=== PATIENT | male | born 1975 | race Caucasian/White ===

== ENCOUNTER → 2020-10-17 | Outpatient (CLI) | payer OTHER ==
[2016-05-05 12:00] VITALS: BP 109/66
[~2020-10-17] MED LIST: CIPR500T94 PO; NAPR-683 PO; ONDA4TAB10 SL; OXYC1TAB15 PO; OXYC1TAB19 PO; OXYC5TAB4 PO; TAMS0.4C97 PO
== END ==
LOC: LAB 10:53
PROVIDERS: ATTEND Orthopaedic Surgery
DX: Z01.812 Encounter for preprocedural laboratory examination (principal); Z20.828 Contact with and (suspected) exposure to other viral communicable diseases
CPT/HCPCS: U0003

== ENCOUNTER 2020-10-20 10:12 | Day surgery (SDC) | payer OTHER ==
[~2020-10-20 10:12] MED LIST changes: +IV RINGERS,LACTATED 1000ML 1,000 ML IV SCH; -OXYC1TAB19 PO; +PROCHLORPERAZINE 10 MG/2 ML VIAL. IVP PRN; +fentaNYL PF VIAL 100 MCG/2 ML VIAL IVP PRN
[2020-10-20] MEDS ORDERED: MIDAZOLAM HCL/PF 2 MG/2 ML VIAL. ONE (10:49)
[2020-10-20] MEDS ORDERED: DEXAMETHASONE SOD PHOS 4 MG/ML VIAL ONE (10:49)
[2020-10-20] MEDS ORDERED: fentaNYL PF VIAL 100 MCG/2 ML VIAL ONE ×2 (10:50→11:30)
[2020-10-20] MEDS ORDERED: ROPIVacaine 0.5% PF 20 ML VIAL. ONE (11:05)
[2020-10-20] MEDS ORDERED: LIDOCAINE 2% PF 5 ML VIAL. ONE (11:29)
[2020-10-20] MEDS ORDERED: PROPOFOL 10 MG/ML (20ML) VIAL. IV ONE ×2 (11:29→13:23)
[2020-10-20] MEDS ORDERED: ROCURONIUM 50 MG/5 ML VIAL. ONE (11:30)
[2020-10-20] MEDS ORDERED: BUPIVACAINE-EPI 0.5% 30 ML VIAL KIT. ONE (12:16)
[2020-10-20] MEDS ORDERED: EPINEPHrine VIAL 30 MG/30 ML VIAL ONE (12:16)
[2020-10-20] MEDS ORDERED: SEVOFLURANE 61 TO 120 MINUTES. IH ONE (13:15)
[2020-10-20] MEDS ORDERED: NEOSTIGMINE METHYLSULFATE 5 MG/5 ML SYRINGE. ONE (13:16)
[2020-10-20] MEDS ORDERED: GLYCOPYRROLATE 1 MG/5 ML VIAL. ONE (13:16)
[2020-10-20] MEDS ORDERED: OXYC1TAB19 PO (13:42)
[2020-10-20] MEDS ORDERED: oxyCODONE/APAP 7.5/325 1 TAB TABLET PO ONE (13:45)
--- NOTE | 2020-10-20 13:51 | DISCH ---
DISCHARGE INSTRUCTIONS Condition on Discharge Condition on Discharge: Stable Activity After Discharge Activity Instructions for Disc: Activity as tolerated Driving Instructions after Dis: Do not drive today Diet after Discharge Diet after Discharge: Regular Wound Incision Care Wound/Incision Care: Change dressing (May remove dressings in 2 days may then shower) Contacting the [facility] after DC Call your doctor for: Concerns you may have Follow-Up Follow up with: Dr. Galvan 10 days NEGIN GALVAN MD Oct 20, 2020 13:51
[2020-10-20] MEDS ORDERED: oxyCODONE/APAP 7.5/325 1 TAB TABLET PO PRN (14:00)
[2020-10-20 14:25] VITALS: BP 150/80
--- NOTE | 2020-10-20 21:46 | PDOC4 ---
Operative Note Operative Note Date of surgery: 10/20/2020 Preoperative diagnosis: High-grade partial-thickness supraspinatus tear Postoperative diagnosis: Superior labral tear, surrounding synovitis, partial- thickness cartilage defect glenoid and subacromial bursal irritation with intact rotator cuff Operative procedure: Right shoulder arthroscopy and extensive debridement of superior labrum glenoid and subacromial space Surgeon: Mandy Phys Ther: Cristo forrest assist Anesthesia: General plus scalene block Estimated blood loss: 5 cc Complications: None Operative indications: Please see my orthopedic clinic note for detailed operative indications and note that patient had right shoulder pain unresponsive to nonoperative management and a high-grade partial-thickness rotator cuff tear on MRI. I had gone over with him additional nonoperative measures including the possibility of operative evaluation and treatment including the possibility of continued pain infection nerve or blood vessel damage medical or other anesthetic complications among others and the potential postoperative restrictions depending on operative findings. He wishes to proceed with surgical evaluation and treatment Operative text: Patient was identified procedure verified patient placed in the supine position on the operating table. After adequate amounts of general anest hesia plus a pre-existing scalene block were obtained he was placed in the decubitus position right side up all bony promises were well-padded. The right shoulder was examined under anesthesia and found to have full range of motion and no instability. Right shoulder was then prepped and draped in the standard sterile fashion and after timeout was performed patient procedure identified and verified a standard posterior portal was established an anterior portal established using spinal needle localization and the shoulder joint was systematically examined. A superior labral tear was noted and debridement carried back to stable tissue with the arthroscopic shaver and bipolar electrocautery. There was no separation from the superior glenoid and the biceps anchor was irritated but otherwise intact. There was synovitis that was debrided to allow visualization of the subscapularis tendon which was intact. Remainder of the rotator cuff insertion was noted to have minimal compromise that was partial-thickness anterior but did not need debridement. The remainder of the footprint was noted to be covered appropriately and bare area of the humerus normal in appearance. There was a partial-thickness defect of the glenoid debrided back to stable tissue humeral head cartilage well preserved as was the capsuloligamentous structures. Subacromial space was then entered and a lateral portal was established using spinal needle localization and irritation noted in the subacromial area but really not over the coracoacromial ligament. After debridement of the subacromial bursa to allow adequate visualization bursal surface of the rotator cuff was noted to be irritated but not significantly compromised and the area was probed with a spinal needle as well as a arthroscopic probe to verify the overall integrity of the rotator cuff which appeared to be interstitial damage based on the MRI but did not require debridement or any type of repair. The joint was drained of arthroscopic fluid portals closed with nylon suture sterile dressings were applied patient was returned to recovery room in stable condition having tolerated procedure well. Cristo forrest assist was present for the procedure and assisted in patient positioning prepping draping assist during the procedure closure and dressings. NEGIN BARBER MD Oct 20, 2020 21:46
== END 2020-10-20 14:50 | disposition home or self-care (01) ==
LOC: SURG 10:12
PROVIDERS: ATTEND Orthopaedic Surgery
DX: S46.011A Strain of muscle(s) and tendon(s) of the rotator cuff of right shoulder, initial encounter (principal); M65.811 Other synovitis and tenosynovitis, right shoulder; M19.90 Unspecified osteoarthritis, unspecified site; F17.210 Nicotine dependence, cigarettes, uncomplicated; Z79.899 Other long term (current) drug therapy; Z98.890 Other specified postprocedural states; Z88.5 Allergy status to narcotic agent; Z88.8 Allergy status to other drugs, medicaments and biological substances; X58.XXXA Exposure to other specified factors, initial encounter; Y93.89 Activity, other specified; Y92.89 Other specified places as the place of occurrence of the external cause; Y99.8 Other external cause status
CPT/HCPCS: 29823; 64415; J0171; J0690; J1100; J2250; J2704; J2710; J2795; J3010; J3490; C1880

== ENCOUNTER 2022-01-28 19:26 | Emergency (ER) | payer OTHER ==
[~2022-01-28 19:26] MED LIST changes: -IV RINGERS,LACTATED 1000ML 1,000 ML IV SCH; +OXYC1TAB19 PO; -PROCHLORPERAZINE 10 MG/2 ML VIAL. IVP PRN; -fentaNYL PF VIAL 100 MCG/2 ML VIAL IVP PRN
== END 2022-01-28 19:50 | disposition left against medical advice (07) ==
LOC: ER 19:26
DX: R06.02 Shortness of breath (principal); Z53.21 Procedure and treatment not carried out due to patient leaving prior to being seen by health care provider